=== PATIENT | female | born 1990 | race Asian ===

== ENCOUNTER 2017-01-20 12:37 | Emergency (ER) | payer BC ==
[~2017-01-20] VITALS: Ht 157.5 cm; Wt 49.9 kg
[2017-01-20 12:46] VITALS: BP 106/72
--- NOTE | 2017-01-20 13:18 | PHYS DOC ---
Past Medical History Past Medical History: No Pertinent History Past Surgical History: No Surgical History Alcohol Use: Occasionally Drug Use: None Adult General Chief Complaint Chief Complaint: COUGH HPI HPI Patient is a 27 year old female presents the ED complaining of cough 1 day. Patient states the cough started last night. Describes the cough as sharp and productive. Associated symptoms include subjective fever and sore throat. Denies chest pain, shortness of breath, dizziness, nausea/vomiting, abdominal pain, blood in stool or bowel/bladder changes. Review of Systems Review of Systems Constitutional: Complains of subjective fever. Denies chills [] Eyes: Denies change in visual acuity, redness, or eye pain [] HENT: Denies nasal congestion. Complains of sore throat [] Respiratory: Complains of cough. Denies shortness of breath[] Cardiovascular: No additional information not addressed in HPI [] GI: Denies abdominal pain, nausea, vomiting, bloody stools or diarrhea [] : Denies dysuria or hematuria [] Musculoskeletal: Denies back pain or joint pain [] Integument: Denies rash or skin lesions [] Neurologic: Denies headache, focal weakness or sensory changes [] Endocrine: Denies polyuria or polydipsia [] Allergies Allergies Allergies Coded Allergies Type Severity Reaction Last Updated Verified No Known Drug Allergies 01/20/17 No Physical Exam Physical Exam Constitutional: Well developed, well nourished, no acute distress, non-toxic appearance. [] HENT: Normocephalic, atraumatic, bilateral external ears normal, oropharynx moist, MILD PHARYNGEAL ERYTHEMA. no oral exudates, nose normal. [] Eyes: PERRLA, EOMI, conjunctiva normal, no discharge. [] Neck: Normal range of motion, no tenderness, supple, no stridor. [] Cardiovascular:Heart rate regular rhythm, no murmur [] Lungs & Thorax: Bilateral breath sounds with crackles in left lower lung. [] Abdomen: Bowel sounds normal, soft, no tenderness, no masses, no pulsatile masses. [] Skin: Warm, dry, no erythema, no rash. [] Back: No tenderness, no CVA tenderness. [] Extremities: No tenderness, no cyanosis, no clubbing, ROM intact, no edema. [] Neurologic: Alert and oriented X 3, normal motor function, normal sensory function, no focal deficits noted. [] Psychologic: Affect normal, judgement normal, mood normal. [] Current Patient Data Vital Signs Vital Signs Date Time Temp Pulse Resp B/P (MAP) Pulse Ox O2 Delivery O2 Flow Rate FiO2 01/20/17 12:46 98.0 103 20 100 Room Air 98.0 Lab Values Laboratory Tests Test 01/20/17 13:10 01/20/17 13:13 Urine Collection Type Unknown Urine Color Yellow Urine Clarity Clear Urine pH 6.5 Urine Specific [place] >=1.030 Urine Protein Negative mg/dL (NEG-TRACE) Urine Glucose (UA) Negative mg/dL (NEG) Urine Ketones (Stick) Negative mg/dL (NEG) Urine Blood Small (NEG) Urine Nitrite Negative (NEG) Urine Bilirubin Negative (NEG) Urine Urobilinogen Dipstick 0.2 mg/dL (0.2 mg/dL) Urine Leukocyte Esterase Trace (NEG) Urine RBC 1-2 /HPF (0-2) Urine WBC 1-4 /HPF (0-4) Urine Squamous Epithelial Cells Few /LPF Urine Bacteria Few /HPF (0-FEW) Urine Mucus Mod /LPF Group A Streptococcus Rapid Negative (NEGATIVE) POC Urine HCG, Qualitative Hcg negative (Negative) EKG EKG [] Radiology/Procedures Radiology/Procedures PROCEDURE: CHEST AP ONLY AP chest, 01/20/2017: History: Dyspnea, cough, pneumonia The heart size and pulmonary vascularity are normal. There is a mild streaky retrocardiac density in the left base. The right lung is clear. There is no evidence of pleural fluid. IMPRESSION: Mild streaky left basilar atelectasis and/or pneumonitis.[] Course & Med Decision Making Course & Med Decision Making Pertinent Labs and Imaging studies reviewed. (See chart for details) []Discussed lab and imaging findings with patient. Patient improved. Vitals stable, no acute distress (RECHECK: HR=88, HA=549/86, O2=98%). Discussed case with attending physician, agrees with evaluation and plan. Will treat for pneumonia. Patient given Z-Carter and Medrol dosepak per request. Discussed follow- up with PCP in 2 days. Discussed reasons to return to the ED. Patient understands and agrees with plan. Dragon Disclaimer Dragon Disclaimer This electronic medical record was generated, in whole or in part, using a voice recognition dictation system. Departure Departure Impression: Primary Impression: Pneumonia Disposition: HOME, SELF-CARE Condition: STABLE Referrals: NO PCP (PCP) LOU PORTILLO MD Patient Instructions: Pneumonia, Adult Scripts Methylprednisolone (MEDROL) 4 Mg Tab.ds.pk 1 PKG PO UD, #1 PKG Prov: ELÍAS SUERO 01/20/17 Azithromycin (AZITHROMYCIN TABLET) 250 Mg Tablet 1 PKG PO UD, #6 TAB Prov: ELÍAS SUERO 01/20/17 ELÍAS SUERO Jan 20, 2017 13:18
[2017-01-20 13:27] LABS: BILIRUBIN,URINE NEGATIVE (NEG); GLUCOSE,URINE NEGATIVE (NEG); NITRITE,URINE NEGATIVE (NEG); PH,URINE 6.5; PROTEIN,URINE NEGATIVE (NEG-TRACE); UROBILINOGEN,URINE 0.2 mg/dL (0.2 mg/dL)
[2017-01-20 13:30] LABS: NEGATIVE OBC STREP NEG; POSITIVE OBC STREP POS
[2017-01-20 13:44] LABS: BACTERIA,URINE FEW /HPF (0-FEW); SQUAMOUS EPITHELIAL CELL,UR FEW /LPF
--- NOTE | 2017-01-20 13:50 | RAD ---
AP chest, 01/20/2017: History: Dyspnea, cough, pneumonia The heart size and pulmonary vascularity are normal. There is a mild streaky retrocardiac density in the left base. The right lung is clear. There is no evidence of pleural fluid. IMPRESSION: Mild streaky left basilar atelectasis and/or pneumonitis.
[2017-01-20] MEDS ORDERED: AZIT250T6 PO (14:07)
[2017-01-20] MEDS ORDERED: METH4TAB2 PO (14:07)
== END 2017-01-20 14:17 | disposition home or self-care (01) ==
LOC: MERGE 12:37 → ER 12:37
DX: J18.9 Pneumonia, unspecified organism (principal)
CPT/HCPCS: 71010; 81001; 81025; 87070; 87880; 99285-25